=== PATIENT | female | born 1960 | race Caucasian/White ===

== ENCOUNTER 2017-11-10 20:35 | Emergency (ER) | payer MEDICAID ==
[~2017-11-10] VITALS: Ht 165.1 cm; Wt 57.0 kg
[~2017-11-10 20:35] MED LIST: BAYER ASPIRIN E81 MG PO; DIAZEPAM5 MG PO; FLEXERIL OR; KEFLEX500 MG PO; LORTAB 5 OR; LORTAB 5/3255 MG PO; MEDDOSEPAK PO; NAPROSYN500 MG OR; NO MEDS; ULTRAM50 MG OR
[2017-11-10] MEDS ORDERED: PERCOCET 5/325M1 TAB PO (23:16)
[2017-11-10 23:33] VITALS: BP 109/60
== END 2017-11-10 23:39 | disposition home or self-care (01) | DRG 563 ==
LOC: ED 20:35
DX: S93.402A Sprain of unspecified ligament of left ankle, initial encounter (principal); F17.210 Nicotine dependence, cigarettes, uncomplicated; X50.0XXA Overexertion from strenuous movement or load, initial encounter

== ENCOUNTER 2018-01-28 00:27 | Emergency (ER) | payer MEDICAID ==
[~2018-01-28] VITALS: Ht 165.1 cm; Wt 57.2 kg
[~2018-01-28 00:27] MED LIST changes: +PERCOCET 5/325M1 TAB PO
[2018-01-28 01:11] LABS: URINE BILIRUBIN - DIPSTICK NEGATIVE (NEGATIVE); URINE BLOOD DIPSTICK SMALL (NEGATIVE); URINE COLOR YELLOW; URINE GLUCOSE - DIPSTICK NEGATIVE (NEGATIVE); URINE KETONE TRACE mg/dL (NEGATIVE); URINE LEUK ESTERASE NEGATIVE (NEGATIVE); URINE NITRITE - DIPSTICK NEGATIVE (Negative); URINE PROTEIN - DIPSTICK NEGATIVE (NEG-TRACE); URINE SPECIFIC GRAVITY 1.025
[2018-01-28 01:11] LABS: HEMATOCRIT 38.3 % (37.0-47.0); HEMOGLOBIN 13.4 g/dl (12.0-16.0); IMMATURE GRANULOCYTES 0.2 % (0.0-1.0); MEAN CORPUSCULAR HGB 30.8 pG CALC (26.0-32.0); NEUT# 6.38 thou/uL (2.00-7.15); RED BLOOD COUNT 4.35 mill/uL (4.20-5.60); RED CELL DISTRI WIDTH 12.5 % (11.5-15.5)
[2018-01-28 01:13] LABS: URINE CLARITY CLEAR
[2018-01-28 01:16] LABS: BARBITURATES NEGATIVE (NEGATIVE); COCAINE NEGATIVE (NEGATIVE); METHADONE NEGATIVE (NEGATIVE); OXCYCODONE POSITIVE (NEGATIVE); TETRAHYDROCANNABIONOL POSITIVE (NEGATIVE); TRICYLIC ANTIDEPRESSANTS NEGATIVE (NEGATIVE)
[2018-01-28 01:19] LABS: URINE BACTERIA FEW hpf; URINE MUCUS MANY hpf (NONE-FEW); URINE SQUAMOUS EPITHELIAL CELL FEW EPI/hpf (0-FEW); URINE YEAST FEW hpf
[2018-01-28 01:20] LABS: ALBUMIN 3.8 g/dL (3.2-5.0); ALKALINE PHOSPHATASE 90 u/l (38-126); ANION GAP 14 (6-22 (CALC)); BILIRUBIN, TOTAL 0.5 mg/dL (0.0-1.4); BUN 15 mg/dL (7-17); BUN/CREATININE RATIO 23 (12-20 (CALC)); CARBON DIOXIDE 31 mmol/l (22-30); CHLORIDE 96 mmol/l (95-108); CREATININE 0.7 mg/dL (0.5-1.0); GFR > 60 ML/MIN (>=60 (CALC)); GFR FOR AFR.AMER. > 60 ML/MIN (>=60 (CALC)); MAGNESIUM 1.7 mg/dL (1.6-2.3); SGOT/AST 15 u/l (14-36); SGPT/ALT 43 u/l (9-52); SODIUM 138 mmol/l (137-146); TOTAL PROTEIN 6.8 g/dL (6.3-8.2)
[2018-01-28] MEDS ORDERED: KEPPRA1000 MG PO (03:05)
[2018-01-28 03:25] VITALS: BP 128/85
== END 2018-01-28 03:25 | disposition home or self-care (01) ==
LOC: ED 00:27
PROVIDERS: Family Medicine
DX: G40.89 Other seizures (principal); F19.10 Other psychoactive substance abuse, uncomplicated; F17.210 Nicotine dependence, cigarettes, uncomplicated; R50.9 Fever, unspecified; Z85.841 Personal history of malignant neoplasm of brain

== ENCOUNTER 2023-07-27 17:54 | Inpatient (IN) | payer SELFPAY ==
[~2023-07-27] VITALS: Ht 165.1 cm; Wt 52.0 kg
[2023-07-27] VITALS (20 sets, daily range): BP systolic 124–215; BP diastolic 75–157
[~2023-07-27 17:54] MED LIST changes: +KEPPRA1000 MG PO
--- NOTE | 2023-07-27 18:45 | NUR ---
PATIENT TO ROOM 12 VIA WHEELCHAIR
[2023-07-27 19:16] LABS: BASO% 0.1 % (0-3); HEMOGLOBIN 14.8 g/dl (12.0-16.0); IMMATURE GRANULOCYTES 0.2 % (0.0-5.0); LYMPH% 6.5 % (15-41); MEAN CELL VOLUME 90.5 fL CALC (80.0-100.0); MEAN CORPUSCULAR HGB 30.5 pG CALC (26.0-32.0); MEAN CORPUSCULAR HGB CONC 33.6 g/dL CAL (32.0-36.0); MONO% 6.3 % (2-13); NEUT# 13.27 thou/uL (2.00-7.15); NEUT% 86.9 % (42-76); RED BLOOD COUNT 4.86 mill/uL (4.20-5.60); RED CELL DISTRI WIDTH 12.5 % (11.5-15.5)
[2023-07-27 19:27] LABS: ALKALINE PHOSPHATASE 77 u/l (38-126); ANION GAP 14 (6-22 (CALC)); BILIRUBIN, TOTAL 0.7 mg/dL (0.02-1.3); BUN 25 mg/dL (8-23); BUN/CREATININE RATIO 33 (12-20 (CALC)); CARBON DIOXIDE 29 mmol/l (22-30); CHLORIDE 99 mmol/l (95-108); CREATININE 0.8 mg/dL (0.5-1.0); ETHYL ALCOHOL 0 mg/dl (0-30); GFR FOR AFR.AMER. > 60 ML/MIN (>=60 (CALC)); GFR OTHER RACES > 60 ML/MIN (>=60 (CALC)); LIPASE 69 u/l (23-300); MAGNESIUM 1.5 mg/dL (1.6-2.3); POTASSIUM 3.1 mmol/l (3.5-5.1); SGOT/AST 25 u/l (9-36); SODIUM 139 mmol/l (137-146); TOTAL PROTEIN 7.9 g/dL (6.3-8.2)
[2023-07-27 19:30] LABS: PROTHROMBIN TIME 11.2 SECONDS (9.0-12.5)
[2023-07-27 19:42] LABS: ALBUMIN 4.6 g/dL (3.2-5.0)
[2023-07-27 19:45] LABS: INTERNATIONAL NORMALIZED RATIO 1.2 RATIO (0.7-1.3)
--- NOTE | 2023-07-27 19:45 | NUR ---
PT MEDICATED PER MAR;PT LYING ON SIDE RESTING;PT MOANS WHEN TOUCHED AND SAID SHE JUST HURTS ALL OVER;VSS;CALL LIGHT WITHIN REACH;
[2023-07-27 20:12] LABS: URINE BLOOD DIPSTICK Trace-intact (NEGATIVE); URINE GLUCOSE - DIPSTICK 100 mg/dL (NEGATIVE); URINE KETONE 15 mg/dL (NEGATIVE); URINE LEUK ESTERASE Negative (NEGATIVE); URINE NITRITE - DIPSTICK Negative (Negative); URINE PROTEIN - DIPSTICK 100 mg/dL (NEG-TRACE); URINE SPECIFIC GRAVITY 1.025; URINE UROBILINOGEN - DIPSTICK 0.2 E.U./dL (0.2)
[2023-07-27 20:15] LABS: URINE COLOR Yellow
[2023-07-27 20:21] LABS: URINE MUCUS FEW hpf (NONE-FEW)
--- NOTE | 2023-07-27 20:45 | NUR ---
PT REMAINS CONFUSED AT THIS TIME;PT IS RESTING ON HER SIDE WITH IV FLUIDS INFUSING WITHOUT DIFFICULTIES;VSS;CALL LIGHT WITHIN REACH
--- NOTE | 2023-07-27 21:46 | NUR ---
PHYSICIAN AT BEDSIDE DISCUSSING POC;IV FLUIDS INFUSING;VSS;CALL LIGHT WITHIN REACH
--- NOTE | 2023-07-27 22:00 | NUR ---
PT SBAR REPORT GIVEN TO NIGHT NURSEEDWIN RN;PT CARE TRANSFERRED AT THIS TIME
[2023-07-27] MEDS ORDERED: MORPHINE SUL30 M3 PO (22:15)
[2023-07-27] MEDS ORDERED: OXYCODONE30 MG PO (22:17)
[2023-07-27] MEDS ORDERED: CYCLOBENZAPRINE10 MG PO (22:18)
[2023-07-28] VITALS (7 sets, daily range): BP systolic 129–163; BP diastolic 78–97
--- NOTE | 2023-07-28 01:00 | NUR ---
PT ARRIVED TO [facility] FROM ER TO ROOM 270. PT IS ONLY ALERT TO SELF MOSTLY DROWSY. PT WAS SHOWN HOW TO USE CALL LIGHT SHE STATED UNDERSTANDING BUT NOT SURE IF SHE UNDERSTOOD. BED ALARM ON. PT NOT ABLE TO ANSWERE ADM QUESTIONS TOO CONFUSED OF SITUATION. NURSE REASSURED PT SHE WAS SAFE IN THE HOSPITAL. AFTER NURSE DID HER ASSESSMENT CALL LIGHT WITHIN REACH AND BED ALARM ON BEFORE LEAVING.
--- NOTE | 2023-07-28 01:25 | NUR ---
REPORT CALLED TO FLOOR RN. PATIENT IS SLEEPING IN BED. PATIENT REQUIRES REPEATED STIMULATION TO AWAKEN. PATIENT IS CONFUSED UPON WAKING UP, CAN FOLLOW COMMANDS. "I DON'T KNOW WHAT I'M DOING HERE." SITUATION EXPLAINED TO PATIENT BUT SHE SEEMS TO RETAIN VERY LITTLE INFORMATION. PATIENT HAD ACCIDENTALLY REMOVED HER IV. RN GAINED NEW ACCESS, PATIENT WAS COOPERATIVE WITH PROCESS. PATIENT TRANSFERRED TO FLOOR, RN AND AIDE/TECH RECEIVED PATIENT. PATIENT IS CALM, SLEEPING IN BED.
--- NOTE | 2023-07-28 02:00 | NUR ---
INFORM MD THAT PT IS HERE ON [facility] ROOM 270 AND THAT SHE HAS NO ORDERS. NURSE GAVE HIM A QUICK SUMMARY ON PT'S CONDITION. NURSE RECEIVED VERBAL ORDER TO REPLACE POTASSIUM AND MAG.
--- NOTE | 2023-07-28 04:09 | NUR ---
PT SLEEPING NO DISTRESS NOTED. CALL LIGHT WITHIN REACH.
[2023-07-28 06:28] LABS: BASO% 0.1 % (0-3); EOS% 0.1 % (0-8); HEMATOCRIT 40.5 % (37.0-47.0); HEMOGLOBIN 13.9 g/dl (12.0-16.0); IMMATURE GRANULOCYTES 0.2 % (0.0-5.0); LYMPH% 8.7 % (15-41); MEAN CELL VOLUME 91.6 fL CALC (80.0-100.0); MEAN CORPUSCULAR HGB 31.4 pG CALC (26.0-32.0); MEAN CORPUSCULAR HGB CONC 34.3 g/dL CAL (32.0-36.0); MONO% 7.1 % (2-13); NEUT# 10.52 thou/uL (2.00-7.15); NEUT% 83.8 % (42-76); RED BLOOD COUNT 4.42 mill/uL (4.20-5.60); RED CELL DISTRI WIDTH 12.6 % (11.5-15.5)
[2023-07-28 07:31] LABS: ALBUMIN 3.9 g/dL (3.2-5.0); ALKALINE PHOSPHATASE 65 u/l (38-126); ANION GAP 11 (6-22 (CALC)); BILIRUBIN, TOTAL 0.6 mg/dL (0.02-1.3); BUN 24 mg/dL (8-23); BUN/CREATININE RATIO 33 (12-20 (CALC)); CARBON DIOXIDE 26 mmol/l (22-30); CHLORIDE 104 mmol/l (95-108); CREATININE 0.7 mg/dL (0.5-1.0); GFR FOR AFR.AMER. > 60 ML/MIN (>=60 (CALC)); GFR OTHER RACES > 60 ML/MIN (>=60 (CALC)); POTASSIUM 3.4 mmol/l (3.5-5.1); SGOT/AST 19 u/l (9-36); SODIUM 137 mmol/l (137-146); TOTAL PROTEIN 6.8 g/dL (6.3-8.2)
[2023-07-28 07:34] LABS: MAGNESIUM 2.3 mg/dL (1.6-2.3)
--- NOTE | 2023-07-28 07:52 | NUR ---
PT SLEPY BUT AWAKENS TO VERBAL STIMULATION, ORIENTED TO FIRST NAME ONLY, NOT PLACE OR TIME. DOES NOT FOLLOW COMMANDS, NOT RESPONDING WITH RIGHT HAND/ARM. DENIES PAIN AT THIS TIME. HEAD CT BEING ORDERED.
--- NOTE | 2023-07-28 09:25 | NUR ---
SPOKE WITH PT'S SITER WHO STATES THAT PT STARTED HAVING TROUBLE FOCUSING FOR PAST WEEK. SPOKE TO CT, THEY SAID SHE WILL BE NEXT.
--- NOTE | 2023-07-28 10:19 | NUR ---
PT LEFT THE FLOOR VIA WHEELCHAIR TRANSPORT FOR CT SCAN.
--- NOTE | 2023-07-28 10:28 | NUR ---
PT BACK FROM CT SCAN.
--- NOTE | 2023-07-28 11:28 | NUR ---
CONTACTED HOSPITAL MEDICAL IMAGING DIRECTOR, WILLIE, AT 1128 HRS IN REFERENCE TO A STAT NEUROLOGY CONSULT ORDERED BY DR MENDOZA.
--- NOTE | 2023-07-28 13:27 | NUR ---
TELEA NEURO DISCUSSING PLAN OF CARE WITH PT AND FAMILY AT THIS TIME.
--- NOTE | 2023-07-28 14:02 | NUR ---
DR MENDOZA AT PT BEDSIDE DISCUSSING PLAN OF CARE WITH PT AND FAMILY.
--- NOTE | 2023-07-28 15:52 | NUR ---
SPOKE WITH FEMALE FAMILY MEMBER FOR QUESTIONS FOR MRI SCREENING, DENIED HAVING ANY METAL IN HEAD. ANSWERED NO TO ALL QUESTIONS, HAS DENTURES BUT DOES NOT HAVE THEM IN AT THIS TIME.
--- NOTE | 2023-07-28 16:00 | NUR ---
PT SLEEPY, ORIENTED TO HER FIRST NAME ONLY. PT IS ABLE TO COMMUNICATE WHEN SHE HAS TO USE THE BATHROOM. FAMILY TAKING TURNS SITTING AT BEDSIDE. WILL CONTUINE TO MONITOR.
--- NOTE | 2023-07-28 17:38 | NUR ---
PT OFF THE FLOOR VIA WHEELCHAIR TRANSPORT FOR MRI.
--- NOTE | 2023-07-28 20:00 | NUR ---
PT RESTING DROWSY FAMILY IN ROOM. IV SITE CHECKED AND FLUSHED. NO DISTRESS NOTED DURING ASSESSMENT. PT STILL CONFUSED. VS WNL ON RA. CALL LIGHT WITH REACH. PLAN OF CARE ONGOING. FAMILY WILL INFORM NURSE WHEN THEY LEAVE SO THAT BED ALARM CAN BE REACTIVATED. PLAN OF CARE ONGOING.
--- NOTE | 2023-07-29 00:15 | NUR ---
PT RESTING BUT GOT UP MULTIPLE TIMES TO USE RESTROOM WITH ASSISTANCE. NO CHANGE PT STILL CONFUSE. CALL LIGHT WITHIN REACH. PLAN OF CARE ONGOING.
--- NOTE | 2023-07-29 04:28 | NUR ---
PT SLEEPING ON HER SIDE FACE THE DOOR. DURING ASSESSMENT NO DISTRESS NOTED. IV LINE CHECKED FOR PROPER PLACEMENT. CALL LIGHT WITHIN REACH. PLAN OF CARE ONGOING.
[2023-07-29 05:07] VITALS: BP 137/76
[2023-07-29 06:31] LABS: BASO% 0.2 % (0-3); EOS% 0.4 % (0-8); HEMATOCRIT 39.9 % (37.0-47.0); HEMOGLOBIN 13.4 g/dl (12.0-16.0); IMMATURE GRANULOCYTES 0.3 % (0.0-5.0); LYMPH% 13.2 % (15-41); MEAN CELL VOLUME 90.9 fL CALC (80.0-100.0); MEAN CORPUSCULAR HGB 30.5 pG CALC (26.0-32.0); MEAN CORPUSCULAR HGB CONC 33.6 g/dL CAL (32.0-36.0); NEUT# 7.91 thou/uL (2.00-7.15); NEUT% 78.9 % (42-76); RED BLOOD COUNT 4.39 mill/uL (4.20-5.60); RED CELL DISTRI WIDTH 12.1 % (11.5-15.5)
--- NOTE | 2023-07-29 07:00 | NUR ---
SHFIT CHANGE REPORT, PT AWAKE ALERT AND ORIENTED RESTING IN BED, DENIES PAIN/DISCOMFORT, IVF INFUSING, CALL JIMENEZ IN REACH AND BED LOCKED IN LOWEST POSITION.
[2023-07-29 07:06] LABS: ALBUMIN 3.5 g/dL (3.2-5.0); ALKALINE PHOSPHATASE 62 u/l (38-126); ANION GAP 13 (6-22 (CALC)); BILIRUBIN, TOTAL 0.7 mg/dL (0.02-1.3); BUN 18 mg/dL (8-23); BUN/CREATININE RATIO 31 (12-20 (CALC)); CARBON DIOXIDE 21 mmol/l (22-30); CHLORIDE 105 mmol/l (95-108); CREATININE 0.6 mg/dL (0.5-1.0); GFR FOR AFR.AMER. > 60 ML/MIN (>=60 (CALC)); GFR OTHER RACES > 60 ML/MIN (>=60 (CALC)); POTASSIUM 3.6 mmol/l (3.5-5.1); SGOT/AST 19 u/l (9-36); SODIUM 136 mmol/l (137-146); TOTAL PROTEIN 6.1 g/dL (6.3-8.2)
[2023-07-29 07:08] LABS: MAGNESIUM 1.7 mg/dL (1.6-2.3)
[2023-07-29 07:57] VITALS: BP 136/81
--- NOTE | 2023-07-29 08:00 | NUR ---
NEUROLOGIST CONSULTED VIRTUALLY, PT PERFORMED ALL ACTIVITIES FOR NIH EVAL BUT DID NOT REMEMBER HER AGE EVEN THOUGH SHE KNEW HER .
[2023-07-29 11:03] VITALS: BP 137/89
--- NOTE | 2023-07-29 12:00 | NUR ---
SLEEPING, NO SIGN DISCOMFORT.
[2023-07-29 15:19] VITALS: BP 150/92
--- NOTE | 2023-07-29 16:00 | NUR ---
STABLE CONDITION, REFUSED MEAL, OFFERED ALTERNATE BUT GRANDSON STATED HE WILL BRING HER SOMETHING SHE LIKES.
[2023-07-29 19:21] VITALS: BP 148/81
--- NOTE | 2023-07-29 20:00 | NUR ---
PATIENT RESTING IN BED AT THIS TIMEWITH FAMILY AT BEDSIDE. PATIENT IS AWAKE AND ALERT WITH NO COMPLAINTS AT THIS TIME. IVF PATENT AND INFUSING VIA RIGHT FOREARM SITE AT 100CC/HR. ASSISTED OOB TO VOID WITHOUT ANY DIFFICULTY. SAFETY PRECAUTIONS REINFORCED. BED ALARM IN PLACE FOR PATIENT SAFETY. CALL LIGHT IN REACH. WILL CONT TO MONITOR.
--- NOTE | 2023-07-29 23:00 | NUR ---
RESTING IN BED-MEDICATED WITH TYLENOL FOR GENERALIZED DISCOMFORT-3/10 ON PAIN SCALE. SIDERAILS HAVE BEEN PADDED PATIENT DOES HAVE HX OF SEIZURES. PATIENT DOES TAKE KEPPRA ORDERED. IVF REMAINS PATENT AN DINFUSING VIA RIGHT FOREARM SITE. BED ALARM IN PLACE FOR PATIENT SAFETY. SAFETY PRECAUTIONS REINFORCED. CALL LIGHT IN REACH. WILL CONT TO MONITOR.
[2023-07-29 23:44] VITALS: BP 156/84
--- NOTE | 2023-07-30 02:00 | NUR ---
PATIENT BED ALARM GOING OFF AND RESPONDED TO THE ROOM. PATIENT STATES THAT SHE NEEDS TO GO TO THE BR. PATIENT IS SB ASSIST AND VOIDING YELLOW URINE. MIN ASSIST BACK TO BED. IVF PATENT AND INFUSING VIA RIGHT FOREARM SITE AT 100CC/HR. NEURO CHECK WNL. PATIENT ALERT AND ORIENTEDEX3. PATIENT WITH NO DEFICITS NOTED AT THIS TIME. CALL LIGHT IN REACH. WILL CONT TO MONITOR.
[2023-07-30 03:45] VITALS: BP 151/90
--- NOTE | 2023-07-30 04:14 | NUR ---
RESTING IN BED AT THIS TIME-POSITIONED ON LEFT SIDE. IVF PATENT AND INFUSING VIA RIGHT FOREARM SITE. SIDERAILS PADDED FOR SEIZURE PRECAUTIONS. CALL LIGHT IN REACH. WILL CONT TO MONITOR.
[2023-07-30 04:43] VITALS: BP 151/90
[2023-07-30 06:53] LABS: BASO% 0.2 % (0-3); EOS% 1.8 % (0-8); HEMATOCRIT 36.9 % (37.0-47.0); HEMOGLOBIN 12.9 g/dl (12.0-16.0); IMMATURE GRANULOCYTES 0.2 % (0.0-5.0); LYMPH% 13.4 % (15-41); MEAN CELL VOLUME 88.5 fL CALC (80.0-100.0); MEAN CORPUSCULAR HGB 30.9 pG CALC (26.0-32.0); NEUT# 6.7 thou/uL (2.00-7.15); NEUT% 76.4 % (42-76); RED BLOOD COUNT 4.17 mill/uL (4.20-5.60); RED CELL DISTRI WIDTH 11.7 % (11.5-15.5)
[2023-07-30 07:13] VITALS: BP 160/86
[2023-07-30 07:17] LABS: ALBUMIN 3.3 g/dL (3.2-5.0); ALKALINE PHOSPHATASE 63 u/l (38-126); ANION GAP 11 (6-22 (CALC)); BILIRUBIN, TOTAL 0.5 mg/dL (0.02-1.3); BUN 13 mg/dL (8-23); BUN/CREATININE RATIO 23 (12-20 (CALC)); CARBON DIOXIDE 19 mmol/l (22-30); CHLORIDE 104 mmol/l (95-108); CREATININE 0.6 mg/dL (0.5-1.0); GFR FOR AFR.AMER. > 60 ML/MIN (>=60 (CALC)); GFR OTHER RACES > 60 ML/MIN (>=60 (CALC)); POTASSIUM 3.3 mmol/l (3.5-5.1); SGOT/AST 17 u/l (9-36); SODIUM 131 mmol/l (137-146); TOTAL PROTEIN 6.1 g/dL (6.3-8.2)
--- NOTE | 2023-07-30 07:50 | NUR ---
PT ALERT, ORIENTED TO PERSON, PLACE, TIME, STATES SHE "FEELS GREAT"
--- NOTE | 2023-07-30 09:46 | NUR ---
PT IS REQUESTING TO LEAVE "RIGHT NOW" SAID SHE HAS TO LEAVE FOR A FAMILY EMERGENCY, DR MENDOZA NOTIFIED.
--- NOTE | 2023-07-30 09:57 | NUR ---
EXPLAINED WHAT IT MEANS TO LEAVE AGAINST MEDICAL ADVIDE TO PT. PT STATES UNDERSTANDING AND SIGNED AMA PAPERWORK. DC'D IV. PT LEFT THE FLOOR WITH BELONGINGS IN HAND WITH FAMILY.
== END 2023-07-30 10:57 | disposition left against medical advice (07) | DRG 871 ==
LOC: ED 17:54 → ED-I 21:30 → ED 21:49 → MS2 21:50
PROVIDERS: Family Medicine; ADMIT Student in an Organized Health Care Education/Training Program; ATTEND Student in an Organized Health Care Education/Training Program
DX: A41.9 Sepsis, unspecified organism (principal); G93.41 Metabolic encephalopathy; R65.20 Severe sepsis without septic shock; F15.10 Other stimulant abuse, uncomplicated; F12.10 Cannabis abuse, uncomplicated; G40.909 Epilepsy, unspecified, not intractable, without status epilepticus; G93.89 Other specified disorders of brain; T42.76XA Underdosing of unspecified antiepileptic and sedative-hypnotic drugs, initial encounter; F17.200 Nicotine dependence, unspecified, uncomplicated; Z91.128 Patient's intentional underdosing of medication regimen for other reason; Z86.79 Personal history of other diseases of the circulatory system; Z86.011 Personal history of benign neoplasm of the brain; Z20.822 Contact with and (suspected) exposure to COVID-19
CPT/HCPCS: A9579; J1953; J3475